=== PATIENT | female | born 1985 | race Caucasian/White ===

== ENCOUNTER 2018-09-05 19:37 | Emergency (ER) | payer OTHER ==
[~2018-09-05] VITALS: Ht 172.7 cm; Wt 72.7 kg
[2018-09-05 20:11] VITALS: Ht 172.7 cm; Wt 72.7 kg
[2018-09-05] MEDS ORDERED: PRENAVITE1 TAB PO (20:12)
[2018-09-05 21:54] LABS: APPEARANCE CLEAR (CLEAR); BILIRUBIN NEGATIVE (NEGATIVE); COLOR STRAW (YELLOW); GLUCOSE NEGATIVE (NEGATIVE); KETONE NEGATIVE (NEGATIVE); NITRITE NEGATIVE (NEGATIVE); PROTEIN NEGATIVE (NEGATIVE); UROBILINOGEN NORMAL (NORMAL)
[2018-09-05] MEDS ORDERED: TYLENOL W/CODEI1 TAB PO (22:46)
[2018-09-06 00:38] VITALS: BP 113/63
== END 2018-09-06 00:38 | disposition home or self-care (01) ==
LOC: D.ER 19:37
PROVIDERS: Emergency Medicine
DX: O26.891 Other specified pregnancy related conditions, first trimester (principal); Z3A.10 10 weeks gestation of pregnancy; N23 Unspecified renal colic